=== PATIENT | female | born 1960 | race Two or more races ===

== ENCOUNTER 2024-07-28 20:11 | Inpatient (IN) | payer MEDICARE, OTHER ==
[~2024-07-28] VITALS: Ht 160 cm; Wt 50.8 kg
[2024-07-28] MEDS ORDERED: TRAZODONE 50 MG TABLET PO PRN (22:30)
[2024-07-28] MEDS ORDERED: ONDANSETRON HCL/PF 4 MG/2 ML VIAL IVP PRN (22:30)
[2024-07-28] MEDS ORDERED: LORAZEPAM 1 MG TABLET PO PRN (22:30)
[2024-07-28] MEDS ORDERED: Z GUARD REMEDY 4 OZ OINT TP PRN (22:30)
[2024-07-28 23:54] LABS: ALBUMIN 3.9 g/dL (3.4-5.0); BILIRUBIN,TOTAL 0.4 mg/dL (0.2-1.0); CALCIUM, SERUM 9.4 mg/dL (8.5-10.1); CREATININE 0.8 mg/dL (0.6-1.3); POTASSIUM 3.3 mmol/L (3.5-5.1); TOTAL PROTEIN, SERUM 7.2 g/dL (6.4-8.2)
[2024-07-29] MEDS: IV D5/0.45 NACL 1,000 ML IV PRN (00:47)
[2024-07-29 06:45] LABS: INR 0.91 (0.91-1.10); PROTHROMBIN TIME 9.7 SECS (9.2-11.1)
[2024-07-29] MEDS ORDERED: LIDOCAINE 2% JEL UROJET 10 ML MM ONE (06:49)
[2024-07-29] MEDS ORDERED: dexaMETHasone SOD PHOSPHATE 2 ML ONE (06:50)
[2024-07-29] MEDS ORDERED: LIDOCAINE 2%-EPI 1:100,000 30 ML VIAL ONE (06:50)
[2024-07-29] MEDS ORDERED: ANESTHESIA TRAY IN PYXIS 1 EA TRAY MC ONE (06:50)
[2024-07-29] MEDS ORDERED: VANCOMYCIN 1 GM VIAL ONE (06:50)
[2024-07-29 06:52] LABS: MAGNESIUM 1.6 mg/dL (1.8-2.4); PHOSPHORUS 3.5 mg/dL (2.5-4.9)
[2024-07-29] MEDS ORDERED: FENTANYL PF 250MCG/5ML AMPUL ONE (06:55)
[2024-07-29 06:56] LABS: BASOPHILS # (AUTO) 0.1 K/uL (0.0-0.2); BASOPHILS % (AUTO) 1.7 % (0.0-2.0); EOSINOPHILS # (AUTO) 0.2 K/uL (0.0-0.7); EOSINOPHILS % (AUTO) 4.4 % (0.0-6.0); HEMATOCRIT 36 % (33-45); HEMOGLOBIN 12.7 g/dL (11.5-14.8); LYMPHOCYTES # (AUTO) 2.1 K/uL (0.8-4.8); LYMPHOCYTES % (AUTO) 40.6 % (20.0-44.0); MEAN CORPUSCULAR HEMOGLOBIN 34 PG (26.0-33.0); MEAN CORPUSCULAR HGB CONC 35 g/dl (31.0-36.0); MEAN CORPUSCULAR VOLUME 98 fL (82-100); MONOCYTES # (AUTO) 0.5 K/uL (0.1-1.30); MONOCYTES % (AUTO) 9.5 % (2.0-12.0); NEUTROPHILS # (AUTO) 2.2 K/uL (1.8-8.9); NEUTROPHILS % (AUTO) 43.8 % (43.0-81.0); PLATELET COUNT (AUTO) 306 K/uL (150-450); RED CELL DISTRIBUTION WIDTH 12.1 % (11.5-15.0); WHITE BLOOD COUNT (AUTO) 5.1 K/uL (4.3-11.0)
[2024-07-29] MEDS ORDERED: MIDAZOLAM HCL 2 MG/2ML VIAL ONE (06:56)
[2024-07-29] MEDS ORDERED: OXYMETAZOLINE HCL NASAL SPRAY 30 ML BOTTLE NS ONE (07:18)
[2024-07-29 07:30] VITALS: BP 141/74; TEMP 97.9; O2SAT 97
[2024-07-29] MEDS: PANTOPRAZOLE 40 MG VIAL IV SCH (09:00)
[2024-07-29] MEDS ORDERED: TRAZ-257 PO (10:28)
[2024-07-29] MEDS ORDERED: AMPH20TA3 PO (10:28)
[2024-07-29] MEDS ORDERED: HYDR12.55 PO (10:28)
[2024-07-29] MEDS ORDERED: LORA-259 PO (10:28)
[2024-07-29] MEDS ORDERED: IV NS 0.9% 1,000 ML BAG IV PRN (10:30)
[2024-07-29] MEDS ORDERED: ONDANSETRON HCL/PF 4 MG/2 ML VIAL IV PRN (10:30)
[2024-07-29] MEDS ORDERED: KETOROLAC TROMETHAMINE INJ 30 MG/ML VIAL IV PRN (10:30)
[2024-07-29] MEDS: MORPHINE SULFATE INJ 2 MG/ML DISP.SYRIN IV PRN (10:49)
[2024-07-29] MEDS ORDERED: ACETAMINOPHEN 325 MG TABLET PO PRN (11:00)
[2024-07-29] MEDS: IV NS 0.9% 1,000 ML IV PRN (11:30)
[2024-07-29] MEDS: MAGNESIUM OXIDE 400 MG TABLET PO ONE (12:58)
[2024-07-29] MEDS: POTASSIUM CHLORIDE 20 MEQ TAB.PRT.SR PO ONE (12:58)
[2024-07-29 16:00] VITALS: BP 154/69; TEMP 97.3; O2SAT 99
[2024-07-29] MEDS: HYDROMORPHONE 1 MG/1 ML DISP.SYRIN IV PRN (18:50)
[2024-07-29] MEDS: VANCOMYCIN 1 GM in IV D5W 250 ML IV SCH (19:54)
[2024-07-29 20:00] VITALS: BP 125/80; TEMP 97.7; O2SAT 98
[2024-07-29] MEDS: TRAZODONE 50 MG TABLET PO SCH (22:27)
[2024-07-29 22:43] VITALS: BP 142/84
[2024-07-29] MEDS: HYDROCHLOROTHIAZIDE 25 MG TABLET PO SCH (22:43)
[2024-07-30] MEDS: LORAZEPAM 1 MG TABLET PO PRN (01:38)
[2024-07-30 05:49] VITALS: O2SAT 98
[2024-07-30 06:40] LABS: CALCIUM, SERUM 7.6 mg/dL (8.5-10.1); CREATININE 0.9 mg/dL (0.6-1.3); MAGNESIUM 1.5 mg/dL (1.8-2.4); POTASSIUM 3.8 mmol/L (3.5-5.1)
[2024-07-30] MEDS: PANTOPRAZOLE 40 MG TABLET.DR PO SCH (09:13)
[2024-07-30] MEDS: MAGNESIUM OXIDE 400 MG TABLET PO ONE (11:00)
== END 2024-07-30 12:25 | disposition home or self-care (01) | DRG 496 ==
LOC: DS 20:11 → MED 20:16
PROVIDERS: ADMIT Nurse Practitioner Acute Care; ATTEND Internal Medicine
PROC: 0NPW0JZ Removal of Synthetic Substitute from Facial Bone, Open Approach (ICD-10-PCS; principal; 2024-07-29)
PROC: 0N5R0ZZ Destruction of Maxilla, Open Approach (ICD-10-PCS; 2024-07-29)
PROC: 0NSR04Z Reposition Maxilla with Internal Fixation Device, Open Approach (ICD-10-PCS; 2024-07-29)
PROC: 0NUR07Z Supplement Maxilla with Autologous Tissue Substitute, Open Approach (ICD-10-PCS; 2024-07-29)
DX: T84.7XXA Infection and inflammatory reaction due to other internal orthopedic prosthetic devices, implants and grafts, initial encounter (principal); S02.40CK Maxillary fracture, right side, subsequent encounter for fracture with nonunion; S02.40DK Maxillary fracture, left side, subsequent encounter for fracture with nonunion; Y83.8 Other surgical procedures as the cause of abnormal reaction of the patient, or of later complication, without mention of misadventure at the time of the procedure; Y92.009 Unspecified place in unspecified non-institutional (private) residence as the place of occurrence of the external cause; M27.2 Inflammatory conditions of jaws; G47.00 Insomnia, unspecified; F41.9 Anxiety disorder, unspecified; I10 Essential (primary) hypertension; Z82.3 Family history of stroke; Z98.82 Breast implant status; D16.4 Benign neoplasm of bones of skull and face; M27.49 Other cysts of jaw; J32.0 Chronic maxillary sinusitis; X58.XXXD Exposure to other specified factors, subsequent encounter
CPT/HCPCS: 36415; 71045-TC; 80048-TC; 80053-TC; 82962-TC; 83735-TC; 84100-TC; 85025-TC; 85730-TC; 87081-TC; 88305-TC; 88311-TC; 88312-TC; 94799-TC; A4223; A4338; C1713; G0378; J0330; J1100; J1171; J1885; J2250; J2270; J2405; J2704; J2765; J3010; J3370; J3490; J7030; J7060

== ENCOUNTER 2024-12-01 08:30 | Inpatient (IN) | payer MEDICARE, OTHER ==
[~2024-12-01] VITALS: Ht 160 cm; Wt 48.5 kg
[~2024-12-01 08:30] MED LIST: AMPH20TA3 PO; HYDR12.55 PO; LORA-259 PO; TRAZ-257 PO
[2024-12-01] MEDS ORDERED: MAGNESIUM HYDROXIDE 30 ML UDC PO PRN (23:00)
[2024-12-01] MEDS ORDERED: MAG HYDROX/AL HYDROX/SIMETH 30 ML UDC PO PRN (23:00)
[2024-12-01] MEDS ORDERED: Z GUARD REMEDY 4 OZ OINT TP PRN (23:00)
[2024-12-01] MEDS ORDERED: ONDANSETRON HCL/PF 4 MG/2 ML VIAL IVP PRN (23:00)
[2024-12-01] MEDS ORDERED: ZOLPIDEM TARTRATE 5 MG TABLET PO PRN (23:00)
[2024-12-01] MEDS ORDERED: ACETAMINOPHEN 325 MG TABLET PO PRN (23:00)
[2024-12-01] MEDS ORDERED: AMPHET ASP/AMPHET/D-AMPHET 10 MG TABLET PO SCH (23:30)
[2024-12-01 23:47] VITALS: BP 160/84; TEMP 97.5; O2SAT 98
[2024-12-02] MEDS: IV D5/0.45 NACL 1,000 ML IV PRN (00:34)
[2024-12-02] MEDS: LORAZEPAM 1 MG TABLET PO ONE (01:01)
[2024-12-02 04:00] VITALS: BP 100/56; TEMP 97.3; O2SAT 95
[2024-12-02 07:13] LABS: BASOPHILS # (AUTO) 0.1 K/uL (0.0-0.2); BASOPHILS % (AUTO) 1.3 % (0.0-2.0); EOSINOPHILS # (AUTO) 0.3 K/uL (0.0-0.7); EOSINOPHILS % (AUTO) 4.7 % (0.0-6.0); HEMATOCRIT 33 % (33-45); HEMOGLOBIN 11.7 g/dL (11.5-14.8); LYMPHOCYTES # (AUTO) 2.1 K/uL (0.8-4.8); LYMPHOCYTES % (AUTO) 40.4 % (20.0-44.0); MEAN CORPUSCULAR HEMOGLOBIN 33 PG (26.0-33.0); MEAN CORPUSCULAR HGB CONC 35 g/dl (31.0-36.0); MEAN CORPUSCULAR VOLUME 95 fL (82-100); MONOCYTES # (AUTO) 0.3 K/uL (0.1-1.30); NEUTROPHILS # (AUTO) 2.5 K/uL (1.8-8.9); NEUTROPHILS % (AUTO) 47.6 % (43.0-81.0); PLATELET COUNT (AUTO) 319 K/uL (150-450); RED BLOOD CELL COUNT(AUTO) 3.49 MIL/uL (4.0-5.2); RED CELL DISTRIBUTION WIDTH 12.3 % (11.5-15.0); WHITE BLOOD COUNT (AUTO) 5.3 K/uL (4.3-11.0)
[2024-12-02 07:17] LABS: INR 0.93 (0.91-1.10); PARTIAL THROMBOPLASTIN TIME 27.6 SEC (24.3-34.3); PROTHROMBIN TIME 9.9 SECS (9.2-11.1)
[2024-12-02 08:03] LABS: CALCIUM, SERUM 8.7 mg/dL (8.5-10.1); CREATININE 0.6 mg/dL (0.6-1.3); MAGNESIUM 1.8 mg/dL (1.8-2.4); PHOSPHORUS 4.1 mg/dL (2.5-4.9); POTASSIUM 3.2 mmol/L (3.5-5.1)
[2024-12-02] MEDS: LORAZEPAM 1 MG TABLET PO SCH (08:16)
[2024-12-02] MEDS: PANTOPRAZOLE 40 MG VIAL IV SCH (08:16)
[2024-12-02] MEDS ORDERED: ACETAMINOPHEN 325 MG TABLET ONE (11:00)
[2024-12-02] MEDS: VANCOMYCIN 1 GM in IV D5W 250 ML IV STA (11:04)
[2024-12-02] MEDS: ACETAMINOPHEN 325 MG TABLET PO STA (11:04)
[2024-12-02] MEDS ORDERED: dexaMETHasone SOD PHOSPHATE 1 ML ONE (11:39)
[2024-12-02] MEDS ORDERED: LIDOCAINE 2%-EPI 1:100,000 30 ML VIAL ONE (11:39)
[2024-12-02] MEDS ORDERED: OXYMETAZOLINE HCL NASAL SPRAY 30 ML BOTTLE NS ONE (11:39)
[2024-12-02] MEDS ORDERED: FENTANYL PF 100MCG/2ML AMPUL ONE (12:02)
[2024-12-02] MEDS ORDERED: ROCURONIUM BROMIDE 50 MG/5 ML ONE (12:02)
[2024-12-02] MEDS ORDERED: FAMOTIDINE/PF INJ 20 MG/2 ML VIAL IV ONE (12:02)
[2024-12-02] MEDS ORDERED: SEVOFLURANE 250 ML BOTTLE IH ONE (12:38)
[2024-12-02] MEDS: POTASSIUM CL. PREMIX PERIPHER. 50 ML IV SCH (14:07)
[2024-12-02] MEDS: IV NS 0.9% 1,000 ML IV PRN (14:28)
[2024-12-02] MEDS ORDERED: ONDANSETRON HCL/PF 4 MG/2 ML VIAL IV PRN (14:30)
[2024-12-02] MEDS ORDERED: ACETAMINOPHEN 325 MG TABLET PO PRN (14:30)
[2024-12-02] MEDS: HYDROMORPHONE 1 MG/1 ML DISP.SYRIN IV PRN (16:12)
[2024-12-02 20:00] VITALS: BP 137/82; TEMP 97.7; O2SAT 99
[2024-12-02] MEDS: TRAZODONE 50 MG TABLET PO SCH (21:37)
[2024-12-02] MEDS: HYDROCHLOROTHIAZIDE 25 MG TABLET PO SCH (21:38)
[2024-12-02] MEDS: VANCOMYCIN 1 GM in IV D5W 250ml IV SCH (22:28)
[2024-12-03 06:42] LABS: CALCIUM, SERUM 8.9 mg/dL (8.5-10.1); CREATININE 0.7 mg/dL (0.6-1.3); POTASSIUM 3.9 mmol/L (3.5-5.1)
[2024-12-03 08:28] VITALS: BP 172/79; TEMP 97.5; O2SAT 99
[2024-12-03] MEDS: PANTOPRAZOLE 40 MG TABLET.DR PO SCH (08:28)
[2024-12-03 10:46] VITALS: BP 150/81; O2SAT 98
== END 2024-12-03 11:00 | disposition home or self-care (01) | DRG 496 ==
LOC: MED 20:07
PROC: 0NPW04Z Removal of Internal Fixation Device from Facial Bone, Open Approach (ICD-10-PCS; 2024-12-02)
PROC: 0N5R0ZZ Destruction of Maxilla, Open Approach (ICD-10-PCS; 2024-12-02)
PROC: 09BR0ZZ Excision of Left Maxillary Sinus, Open Approach (ICD-10-PCS; principal; 2024-12-02 13:20)
DX: T84.69XA Infection and inflammatory reaction due to internal fixation device of other site, initial encounter (principal); T81.83XA Persistent postprocedural fistula, initial encounter; T86.831 Bone graft failure; M27.2 Inflammatory conditions of jaws; I10 Essential (primary) hypertension; F41.9 Anxiety disorder, unspecified; E78.5 Hyperlipidemia, unspecified; G47.00 Insomnia, unspecified; Z88.2 Allergy status to sulfonamides; I35.0 Nonrheumatic aortic (valve) stenosis; Y83.2 Surgical operation with anastomosis, bypass or graft as the cause of abnormal reaction of the patient, or of later complication, without mention of misadventure at the time of the procedure; Y92.009 Unspecified place in unspecified non-institutional (private) residence as the place of occurrence of the external cause; J32.0 Chronic maxillary sinusitis
CPT/HCPCS: 36415; 71045-TC; 80048-TC; 82962-TC; 83735-TC; 84100-TC; 85025-TC; 85610-TC; 85730-TC; 86850-TC; 88300-TC; 88305-TC; 88311-TC; A4223; A4338; G0378; J1100; J1171; J2405; J2470; J2704; J2765; J3010; J3370; J3480; J3490; J7030; J7060